=== PATIENT | female | born 1945 | race Caucasian/White ===

== ENCOUNTER 2017-10-02 10:41 | Outpatient (CLI) | payer MEDICARE ==
--- NOTE | 2017-10-02 11:42 | RAD ---
FOUR VIEWS RIGHT KNEE: HISTORY: Right knee pain. Degenerative joint disease. FINDINGS: Four views right knee show moderate tricompartmental joint osteophyte formation consistent with osteo arthritis. No knee effusion is seen. No fracture or dislocation are present. IMPRESSION: Moderate right knee osteoarthritis without acute osseous abnormality. POS: MAXIMO
== END 2017-10-02 10:42 | disposition home or self-care (01) ==
LOC: MADRAD 10:41
PROVIDERS: ATTEND Obstetrics & Gynecology
DX: M19.90 Unspecified osteoarthritis, unspecified site (principal); M17.11 Unilateral primary osteoarthritis, right knee

== ENCOUNTER 2018-07-03 11:41 | Outpatient (CLI) | payer MEDICARE ==
--- NOTE | 2018-07-03 12:41 | RAD ---
RIGHT SHOULDER THREE VIEWS: History: Right shoulder pain. FINDINGS: Slight inferior subluxation of the humeral head in relation to the glenoid. Moderate osteophytosis of the acromioclavicular and glenohumeral joints. No acute fracture, dislocation, or aggressive osseous erosions. IMPRESSION: 1. Degenerative changes include osteophytosis. Slight inferior subluxation may reflect joint fluid. 2. No acute osseous abnormalities are demonstrated. POS: GAYLE
== END 2018-07-03 11:42 | disposition home or self-care (01) ==
LOC: MADRAD 11:41
PROVIDERS: ATTEND Obstetrics & Gynecology
DX: M75.41 Impingement syndrome of right shoulder (principal); M19.011 Primary osteoarthritis, right shoulder